=== PATIENT | male | born 1965 | race American Indian/Alaskan Native ===

== ENCOUNTER 2016-08-14 00:44 | Emergency (ER) | payer OTHER ==
[2016-08-14 01:03] VITALS: BP 162/100
[2016-08-14 01:15] LABS: Basophils % (Auto) 1.3 % (0.0-1.8); Hematocrit 39.4 % (35.5-45.6); Hemoglobin 13.5 gm/dl (11.8-15.2); Mean Corpuscular HGB Conc 34 % (32-34); Mean Corpuscular Hemoglobin 30 pg (28-32); Mean Corpuscular Volume 87 fl (84-94); Platelet Count 265 K/mm3 (140-440); Red Blood Count 4.52 M/mm3 (3.65-5.03); Red Cell Distribution Width 13.7 % (13.2-15.2); White Blood Count 6.1 K/mm3 (4.5-11.0)
[2016-08-14 01:36] LABS: Anion Gap 20 mmol/L; BUN/Creatinine Ratio 16.66; Blood Urea Nitrogen 20 mg/dL (9-20); Calcium 9.1 mg/dL (8.4-10.2); Carbon Dioxide 24 mmol/L (22-30); Chloride 97.4 mmol/L (98-107); Glucose 101 mg/dL (75-100); Sodium 138 mmol/L (137-145)
== END 2016-08-14 07:55 | disposition left against medical advice (07) ==
LOC: ED 00:44
DX: R07.9 Chest pain, unspecified (principal); R51 Headache; M54.2 Cervicalgia; Z53.21 Procedure and treatment not carried out due to patient leaving prior to being seen by health care provider
CPT/HCPCS: 36415; 80048; 84484; 85025; 93005; 93010